=== PATIENT | male | born 1965 | race Caucasian/White ===

== ENCOUNTER 2019-04-04 19:38 | Emergency (ER) | payer OTHER ==
[~2019-04-04] VITALS: Ht 170.2 cm; Wt 92.5 kg
[2019-04-04 20:02] VITALS: Ht 170.2 cm; Wt 92.5 kg
[2019-04-04 22:45] VITALS: BP 135/75
== END 2019-04-04 22:45 | disposition home or self-care (01) ==
LOC: ED 19:38
DX: S61.213A Laceration without foreign body of left middle finger without damage to nail, initial encounter (principal); W26.0XXA Contact with knife, initial encounter; Y93.89 Activity, other specified; Y92.89 Other specified places as the place of occurrence of the external cause; Y99.8 Other external cause status
CPT/HCPCS: J2001